=== PATIENT | male | born 1975 | race Caucasian/White ===

== ENCOUNTER → 2024-11-30 09:53 | Outpatient (REF) | payer OTHER, SELFPAY | LOC: HWRAD 09:53 | PROVIDERS: ATTENDING PHYSICIAN Nurse Practitioner Family; FAMILY PHYSICIAN Family Medicine | DX: J34.9 Unspecified disorder of nose and nasal sinuses (principal); H93.8X2 Other specified disorders of left ear | CPT/HCPCS: 70486 ==

== ENCOUNTER 2025-04-05 13:11 | Emergency (ER) | payer OTHER, SELFPAY ==
[2025-04-05 13:19] VITALS: BP 163/104
[2025-04-05 13:31] VITALS: BP 129/77
[2025-04-05 13:39] VITALS: BMI 39.8
[2025-04-05 13:42] VITALS: BMI 39.8
--- NOTE | 2025-04-05 14:02 | ED.GENMED ---
History of Present Illness
General
Chief Complaint: Dizziness
Source: patient
Exam Limitations: none
Time Seen by Provider: 04/05/25 13:48
Nursing documentation reviewed up to this point in time: agreed with
History of Present Illness
History of Present Illness:
The patient is a 49-year-old man with a past medical history of high blood pressure and sleep apnea who reports sudden onset of feeling dizzy today. Patient reports he was outside in the heat working on his tractor for several hours. Patient
reports that shortly after parking the tractor, he felt a sense of dizziness in his head. Patient reports that when he tried to walk, he felt like he was leaning to 1 side. Patient denies vision changes and headache. Patient reports he now feels
much better but still feels slightly dizzy. Patient reports that when his dizziness was intense, he felt slightly short of breath, but did not feel any chest pain. Patient reports that the shortness of breath is now gone completely and he
attributes it to a possible anxiety attack. Patient's reports that for 2 hours he also experience brief episodes of difficulty getting words out. Patient reports that the symptoms are now gone. He denies weakness and numbness. Denies
ringing of his ears and ear pain.
Past History
Past History
ED Past Medical History: HTN, Other (gout) and Other (Kidney stone)
ED Past Surgical History: Other (Left inguinal herniorrhaphy)
Social History
Tobacco: Former smoker
Alcohol: Former
Drug: None
Personal:
Living: with family
Employment: Employed
Family History
Family History: Hypertension
Phy Exam
Physical Exam
Physical Exam:
GENERAL: Alert , in no apparent distress
EYE: pupils equal and reactive. anicteric . Extraocular muscles intact
NECK: Supple, nontender, no meningismus, no significant adenopathy.
ENT: posterior pharynx is clear, oral mucosa is moist. TM clear b/l, nares patent.
CARDIAC: Regular rate and rhythm. no murmur.
LUNGS: Clear breath sounds bilaterally, no acute respiratory distress, no wheezes/rales/rhonchi
ABDOMEN: Soft, nondistended, without focal tenderness, no r/g, no cvat. normoactive BS.
NEUROLOGICAL: Alert and oriented x3, no focal neuro deficits. Gait is forrest and steady. Patient stands up, he is feels still slightly dizzy but his gait is completely steady. Normal finger-nose. 5 out of 5 strength in all extremities. Speech
sounds completely normal
SKIN: Warm and dry, normal color, skin intact. No rash.
MUSCULOSKELETAL: No C/C/E. peripheral pulses are full and equal b/l. No palpable tenderness.
PSYCH: Normal and appropriate interaction.
Course
Orders/Labs/Results
Orders:
Orders
04/05/25 13:16
Electrocardiogram (*1) Stat
Comment: ALREADY DONE IN ED
04/05/25 14:14
CT Head W/o Iv Contrast Urgent
Comment:
Reason For Exam: dizziness
04/05/25 14:15
Pt Eval And Treat Urgent
Treatment: dizziness
Activity Level: Out of Bed-Early Mobility
04/05/25 14:23
Complete Blood Count/With Diff Urgent
Comprehensive Metabolic Panel Urgent
Troponin I Urgent
Abnormal Lab Results
04/05/25
14:23
MCH 31.4 H pg
(27.0-31.0)
Abs Immat Gran (auto) 0.1 H 10^3/uL
(0-0.05)
Immature Gran % 1.0 H %
(0-0.5)
Albumin 5.1 H g/dl
(3.5-5.0)
04/05/25 14:23
04/05/25 14:23
Vital Signs
Initial and Last Documented VS:
Initial Vital Signs
Temp Pulse Resp BP Pulse Ox
98 F 80 16 163/104 99
04/05/25 13:19 04/05/25 13:19 04/05/25 13:19 04/05/25 13:19 04/05/25 13:19
Last Documented Vital Signs
Temp Pulse Resp BP Pulse Ox
98 F 67 25 147/89 97
04/05/25 13:19 04/05/25 15:30 04/05/25 15:30 04/05/25 15:00 04/05/25 15:15
MDM/Problems Addressed
Differential Diagnosis Includes:
Acute vertigo, acute CVA, acute dehydration
MDM/Problems Addressed:
Patient complains of acute dizziness
Chronic conditions affecting care: HTN
Acute Exacerbation and/or Progression of Chronic Illness:
Patient's blood pressure is acutely elevated, possibly due to anxiety, and also possibly causing his symptoms of dizziness.
*Radiology
Radiology exam reviewed: radiology read reviewed
*Pulse Oximetry
SaO2: 99
Oxygen Mode of Delivery: Room air
Patient hypoxic: no
Comment: Patient is 99% on room air
*EKG
Interpreted by ED Provider?: Yes
Interpretation: normal
Comparison EKG: no changes
Rate: normal
Rhythm: sinus
[place]: normal axis
Interval: normal interval
QRS Pattern: right bundle branch block
Ischemia: no ischemia
*[employer] Interpretation
Rate: normal
Interpretation: normal
Rhythm: sinus
*Critical Care Note
Total Time (30-74mins, 75-104mins- exclusive of procedures): Not Applicable
Data Reviewed
Review of Other/Old Records Reveals: Radiology Studies (CT sinuses 2016 shows no significant disease of sinuses)
Source: patient and spouse
Update Note
Update Note:
Physical therapy came to evaluate patient and feels that his vestibular nature. Did maneuvers with patient and now patient's dizziness is gone completely. Therefore, it is very unlikely to be a CVA. Additionally, patient has a completely normal
neurological exam.
ED Attending Note
-
Portions of this chart may have been created with voice recognition software.� Occasional wrong word or��sound alike� substitutions may have occurred due to the inherent limitations of voice recognition software.
Discharge Plan
Departure
Patient Disposition: Home (Routine Discharge)
Date of Disposition: 04/05/25
Time of Disposition: 15:47
Patient with high blood pressure during this ER visit?: Yes
Condition: Good
Covid-19: Not Applicable
Discharge Problem:
acute vertigo
Instructions: Vertigo (a Type of Dizziness) (DC), BLOOD PRESSURE
Prescriptions:
No Action
ibuprofen 800 MG tablet
800 mg PO Q6HPRN PRN (Reason: pain with food) Qty: 30 0RF
omeprazole magnesium [Prilosec OTC] 20 MG tablet,delayed release (DR/EC)
20 mg PO DAILY Qty: 21 0RF
lorazepam 1 MG tablet
1 mg PO Q6HPRN PRN (Reason: anxiety) Qty: 12 0RF
Referrals:
Manjit Arvizu DO [Family Provider, Family Practice]
Activity Restrictions/Additional Instructions:
Return with any acute/new vision changes. Return with any recurrence of difficulty with your speech
Interventions
Interventions:
*Risk Screen - Suicide Last Done: 04/05/25 13:19
*General Assessment Last Done: 04/05/25 13:19
*Neglect/Abuse Screening Last Done: 04/05/25 13:19
*ED- Fall Risk Assessment Last Done: 04/05/25 13:19
*ED COVID-19 Vaccine History Last Done: 04/05/25 13:19
*Nursing Disposition Last Done: 04/05/25 16:09
ED- Neurological Assessment Last Done: 04/05/25 13:39
ED Swallowing Screen Last Done: 04/05/25 13:39
Discharge Date and Time
Discharge Date/Time: 04/05/25 16:09
Print Language: IRISH
[2025-04-05 14:35] LABS: % Basophils 0.7 % (0-2); % Eosinophils 2.6 % (0-6); % Lymphocytes 30.1 % (20.5-51.1); % Monocytes 8.4 % (1.7-9.3); % Neutrophils 57.2 % (42.2-75.2); Absolute Eosinophils 0.2 10^3/uL (0-0.7); Absolute Immature Granulocytes 0.1 10^3/uL (0-0.05); Absolute Lymphocytes 1.8 10^3/uL (1.2-3.4); Absolute Monocytes 0.5 10^3/uL (0.1-0.6); Absolute Neutrophils 3.5 10^3/uL (1.4-6.5); Hematocrit 44.2 % (39.0-52.0); Hemoglobin 16.1 g/dL (13.0-18.0); Mean Corp Hgb Conc. 36.4 g/dL (33.0-37.0); Mean Corpuscular Hgb 31.4 pg (27.0-31.0); Mean Corpuscular Volume 86.2 fL (80.0-94.0); Nucleated Red Blood Cells % 0 % (-); Platelet Count 169 10^3/uL (130-400); Red Blood Cell Count 5.13 10^6/uL (4.70-6.10); Red Cell Dist. Width 12.3 % (11.5-14.5); White Blood Cell Count 6.1 10^3/uL (4.8-10.8)
[2025-04-05 15:00] VITALS: BP 147/89
[2025-04-05 15:03] LABS: ALT (SGPT) 47 U/L (0-50); AST (SGOT) 34 U/L (17-59); Albumin 5.1 g/dl (3.5-5.0); Alkaline Phosphatase 38 U/L (38-126); Blood Urea Nitrogen 12 mg/dl (9-20); Calcium 9.7 mg/dl (8.4-10.2); Carbon Dioxide 25 mmol/L (22-30); Chloride 107 mmol/L (98-107); Estimated Creatinine Clearance 121 ml/min; Glucose 97 mg/dl (70-99); Potassium 4.2 mmol/L (3.5-5.1); Sodium 140 mmol/L (135-145); Total Bilirubin 1.1 mg/dl (0.2-1.3); Total Protein 7.7 g/dl (6.3-8.2); eGFR > 60.00
[2025-04-05 15:13] LABS: Troponin I < 0.012 ng/ml
== END 2025-04-05 16:09 | disposition home or self-care (01) ==
LOC: EMR 13:11
PROVIDERS: EMERGENCY PHYSICIAN Emergency Medicine; FAMILY PHYSICIAN Family Medicine
DX: R42 Dizziness and giddiness (principal); G47.30 Sleep apnea, unspecified; I10 Essential (primary) hypertension; Z82.49 Family history of ischemic heart disease and other diseases of the circulatory system; Z87.442 Personal history of urinary calculi; Z87.891 Personal history of nicotine dependence
CPT/HCPCS: 99284; 70450; 80053; 84484; 85025; 93005